=== PATIENT | female | born 1975 | race Caucasian/White ===

== ENCOUNTER 2016-12-23 11:50 | Emergency (ER) | payer SELFPAY ==
[2016-12-23 12:08] VITALS: BP 154/91; PULSE 86; TEMP 97.9; BMI 27.4
[2016-12-23] MEDS ORDERED: PREDNISONE 10 MG TAB PO ONE (12:10)
[2016-12-23] MEDS ORDERED: OXYCODONE HCL 5 MG TABLET PO ONE (12:10)
[2016-12-23] MEDS ORDERED: CYCLOBENZAPRINE 10 MG TAB PO ONE (12:10)
--- NOTE | 2016-12-23 12:10 | EDPRACDOC ---
- General Information Chief Complaint: Back Pain Stated Complaint: LOWER BACK PAIN NO INJURY DULL ACHE DOWN BACK OF L Time Seen by Provider: 12/23/16 12:04 Home Medications: Home Medications Cholecalciferol (Vitamin D3) [Vitamin D3] 2,000 unit PO DAILY 01/22/16 Ascorbic Acid [Vitamin C] 1,000 mg PO DAILY 03/06/16 Magnesium 250 mg PO DAILY 03/06/16 Medroxyprogesterone Acetate [Provera] 10 mg PO DAILY #5 tablet 03/06/16 Ondansetron [Zofran Odt] 4 mg PO Q6H #20 tab.rapdis 03/06/16 Oxycodone Immediate Release [Oxycodone Immediate Release (OxyIR)] 5 mg PO Q6H PRN #14 tab 03/06/16 Pantoprazole Sodium [Protonix] 40 mg PO DAILY 03/06/16 Vitamin E 1,000 unit PO DAILY 03/06/16 Hydrocodone Bit/Acetaminophen [Hydrocodon-Acetaminophen 5-325] 1 tab PO Q6 PRN # 20 tab 07/20/16 Cyclobenzaprine HCl [Flexeril] 10 mg PO TID PRN #20 tablet 12/23/16 Oxycodone Immediate Release [Oxy-Ir] 5 mg PO Q6H PRN #20 tab 12/23/16 Prednisone [Deltasone, Orasone] 40 mg PO DAILY 5 Days 12/23/16 Allergies/Adverse Reactions: Allergies Allergy/AdvReac Type Severity Reaction Status Date / Time sulfamethoxazole Allergy Severe Hives* Verified 12/23/16 12:34 [From Bactrim] trimethoprim [From Bactrim] Allergy Severe Hives* Verified 12/23/16 12:34 - History of Present Illness Onset: 4 DAYS HPI: PT COMPLAINS OF 4 DAYS OF INCREASING PAIN ACROSS LOWER BACK THAT RADIATES DOWN BOTH LEGS, NO KNOWN INJURY, DOES HAVE HX OF PRIOR BACK PAIN, DENIES NUMBNESS OR TINGLING OF HER EXTREMITIES, USING IBUPROFEN WITHOUT RELIEF. Pain Location: Reports: Bilateral, Lower, Lumbar Pain Radiates To: Reports: Calf Pain Caused By: Reports: Spontaneous Circumstances: Reports: Unknown Relevant History: Reports: None Pain Severity: Reports: Severe Pain Quality: Reports: Sharp, Stabbing Worsened By: Reports: Movement, Twisting, Walking Associated Signs and Symptoms: Denies: Abdominal Pain, Dysuria, Hematuria, Nausea, Vomiting ED Past Medical History - History Reviewed Yes Nurses notes reviewed and agree except as marked - Patient Medical History Cardiac History: Reports: Hypertension GI/ History: Reports: Gastroesophageal Reflux, IBD, Diverticulosis Psychological History: Denies: Depression, Anxiety, Substance Use Disorder Systemic History: Reports: Cancer (SKIN). Denies: Diabetes Surgical History: Reports: Cholecystectomy, Other (EXPL LAP FOR A RUPTURED HEMORRHAGIC OVARIAN CYST, SKIN CA REMOVAL) - Family Medical History Reports: Diabetes - Social Medical History Smoking Status: Former smoker Social History: Denies: Substance Use Disorder ETOH: None Substance Abuse: None EDM Review of Systems - Review of Systems Constitutional: negative: Chills, Fever Genitourinary: negative: Dysuria, Frequency Neurological: negative: Dizziness, Headache, Numbness, Weakness Musculoskeletal: Back Integumentary: No Symptoms Reported - Physical Exam Constitutional: Alert (Awake), No apparent distress Oriented to: Time, Person, Place Last recorded Vital Signs: Last Vital Signs Temp 97.9 F 12/23/16 12:07 Pulse 86 12/23/16 12:07 Resp 20 12/23/16 12:07 BP 154/91 12/23/16 12:07 Pulse Ox 97 12/23/16 12:07 Oxygen Pulse Oxygen Saturation 97 O2 Device Room Air Oxygen Flow Rate Fraction of Inspired Oxygen ( FIO2) - HEENT Head: Normal ( normocephalic) - Integumentary Skin: Normal, Warm, Dry Lymphatics: Normal (no adenopathy) - Neurologic Memory Impaired: Normal Motor Function: Normal (Normal tone, Pulses 2+ No cyanosis or edema, FROM) Cranial Nerve: Normal (CN II-X11 intact sensation, strength 5/5) Cerebellar: Normal Mood Description: Normal Perception: Normal ED Back Exam - Neurologic Motor Deficit: None - Musculoskeletal Cervical: Normal Thoracic: Normal Lumbar: Tender Midline: Tender Paraspinous: Tender Straight Leg Raise: Negative Pelvis: Normal - Differential Diagnosis DJD, HNP, Musculoskeletal pain, Strain - Diagnostic Imaging L-S SPINE Image interpreted by: Radiologist LUMBAR SPINE - COMPLETE 4+ VIEW COMPARISON: 12/17/2015 FINDINGS: Loss of normal lumbar lordosis. Slight disc space narrowing at L5-S1 compatible with early disc disease. No fracture or subluxation. SI joints are symmetric and unremarkable. Prior cholecystectomy. IMPRESSION: Early degenerative disc changes at L5-S1. Loss of normal lumbar lordosis. No acute bony abnormality. Decision Time to Discharge: 12:40 - Departure Disposition: Home Condition: Stable Final Diagnosis: Degenerative disc disease at L5-S1 level Instructions: Acute Low Back Pain (ED) Education/Counseling Given To: Patient Education/Counseling Given Regarding: Diagnosis, Treatment, Prognosis, Follow Up Referrals: Real Fried MD [Staff Physician] - One Week Prescriptions: Cyclobenzaprine HCl [Flexeril] 10 mg PO TID PRN #20 tablet PRN Reason: Muscle Spasms Oxycodone Immediate Release [Oxy-Ir] 5 mg PO Q6H PRN #20 tab PRN Reason: Pain Prednisone [Deltasone, Orasone] 40 mg PO DAILY 5 Days Additional Instructions: Back Pain: apply warm compresses to affected area 20 mins at a time 4 - 5 times daily as needed for pain
--- NOTE | 2016-12-23 12:37 | DIRPT ---
CLINICAL DATA: Increasing pain across the lower back, radiating into both legs. No known injury. EXAM: LUMBAR SPINE - COMPLETE 4+ VIEW COMPARISON: 12/17/2015 FINDINGS: Loss of normal lumbar lordosis. Slight disc space narrowing at L5-S1 compatible with early disc disease. No fracture or subluxation. SI joints are symmetric and unremarkable. Prior cholecystectomy. IMPRESSION: Early degenerative disc changes at L5-S1. Loss of normal lumbar lordosis. No acute bony abnormality. Electronically Signed By: Hector Melo M.D. On: 12/23/2016 12:34
== END 2016-12-23 12:49 | disposition home or self-care (01) ==
LOC: EDMC 11:50
DX: M51.37 Other intervertebral disc degeneration, lumbosacral region (principal)
CPT/HCPCS: 72110; 99282; J3490